=== PATIENT | male | born 2000 | race Caucasian/White ===

== ENCOUNTER 2025-02-08 10:47 | Emergency (ER) | payer OTHER, SELFPAY ==
--- NOTE | ~2025-02-08 | CT_ITS ---
EXAMINATION: CT abdomen pelvis w con DATE: 02/08/2025 12:05 INDICATION: Abdominal pain TECHNIQUE: Computed tomography (CT) of the abdomen and pelvis was performed with 100 mL Omnipaque-350 intravenous contrast. Automated exposure control and iterative reconstruction technique were employe d. The dose-length product was 199.40 mGy-cm. COMPARISON: None FINDINGS: Lung bases are clear. Heart size normal. No pericardial or pleural effusion. Subcentimeter low-attenu ation likely cyst or hemangioma at the anterior dome of the liver. Gallbladder, spleen, pancreas, hemal ateral adrenal glands and kidneys are normal. Bowels including the retrocecal appendix are normal. Th ere is diffuse wall thickening of the bladder but without surrounding inflammatory stranding. No free intraperitoneal gas or fluid. No pathologically enlarged abdominal or pelvic lymphadenopathy. Surgic al clips potentially for vasectomy along the bilateral spermatic cords. IMPRESSION: 1. Wall thickening of the bladder which could be due to partially decompressed state but which could also be seen with cystitis either acute or chronic although there is no surrounding inflammatory stra nding to suggest acute cystitis. Correlate with urinalysis. 2. No other acute intra-abdominal/pelvic process. Reviewed, dictated and finalized at location A. IMPRESSION: 1. Wall thickening of the bladder which could be due to partially decompressed state but which could also be seen with cystitis either acute or chronic althou gh there is no surrounding inflammatory stranding to suggest acute cystitis. Co rrelate with urinalysis. 2. No other acute intra-abdominal/pelvic process.
[2025-02-08 10:51] VITALS: BP 130/85; PULSE 80; RESP 16; TEMP 36.4; O2SAT 98
[2025-02-08 11:15] VITALS: BP 119/78; PULSE 71; RESP 16; O2SAT 99
[2025-02-08 11:18] LABS: Hematocrit 44.4 % (42.0-52.0); Hemoglobin 14.9 g/dL (14.0-18.0); Immature Granulocyte Percent A 0.4 % (0-0.5); Lymphocytes Absolute Auto 2.39 K/mm3 (0.9-3.2); Mean Corpuscular HGB Conc 33.6 g/dl (32-36); Mean Corpuscular Hemoglobin 28.7 pg (26-34); Mean Corpuscular Volume 85.5 fl (80-100); Nucleated Red Blood Cells Absolute Auto 0.000 K/mm3 (0.0-0.012); Nucleated Red Blood Cells Perc 0.0 % (0.0-0.2); Platelet Count Result 301 k/mm3 (150-375); Red Blood Count 5.19 M/mm3 (4.6-6.20); White Blood Count 8.5 K/mm3 (4.5-10.0)
[2025-02-08 11:27] LABS: Add Urine Microscopic? YES; Appearance Urine Clear (Clear); Glucose Urine UA Negative (Negative); Leukocyte Esterase Ur Negative LEU/UL (Negative); Need Manual Microscopic Reviewed; Nitrate Urine Negative (Negative); Non Pathogenic Casts 0-2; Specific Grav Ur 1.030 (1.001-1.035)
--- NOTE | 2025-02-08 11:33 | ED.ABDPAIN ---
HPI - Abdominal Pain General Chief Complaint: Abdominal Pain Stated Complaint: left sided abdominal pain for 8yrs Time Seen by Provider: 02/08/25 11:25 History of Present Illness HPI narrative: Pt presents with intermittent abdominal pain and rectal bleeding for 8 years. Pt says the pain is worse recently. Pt saw a PCP for first time recently and has GI follow up next month. Pt says he vomits blood sometimes but not recently. Related Data Allergies Allergy/AdvReac Type Severity Reaction Status Date / Time No Known Allergies Allergy Verified 02/08/25 10:54 Review of Systems Review of Systems: All systems reviewed & are unremarkable except as noted in HPI and below Exam Const: General: healthy appearing and no acute distress Nutritional Appearance: well nourished Orientation/consciousness: patient oriented x3 Limitations: no limitations Resp: Effort & Inspection: normal respiratory effort Auscultation: clear to auscultation bilaterally Cardio: Rate: regular rate Rhythm: regular rhythm GI: GI Palp: Yes Soft to palpation and Yes Tenderness to palpation present (GI) (across upper abdomen) Auscultation: normal bowel sounds Back/Spine/Pelvis: Back: no CVA tenderness Skin: General skin exam: normal color Rashes: no rashes Wounds: no wounds Neuro: General: patient oriented x3, moves all extremities, no meningeal signs and no focal motor deficits Cranial nerves: Yes Nystagmus not present Speech: normal speech Extrem: General: normal to inspection and no clubbing, cyanosis or edema Psych: Mental Status: mental status grossly normal Affect: normal affect Attitude: cooperative Course Vital Signs Vital signs: Vital Signs Temperature 97.6 F 02/08/25 10:51 Pulse Rate 80 02/08/25 10:51 Respiratory Rate 16 02/08/25 10:51 Blood Pressure 130/85 02/08/25 10:51 Pulse Oximetry 98 02/08/25 10:51 Temperature 97.6 F 02/08/25 10:51 Pulse Rate 71 02/08/25 11:15 Respiratory Rate 16 02/08/25 11:15 Blood Pressure 119/78 02/08/25 11:15 Pulse Oximetry 99 02/08/25 11:15 MDM - Abdominal Pain MDM Narrative Medical decision making narrative: Pt presents with intermittent abdominal pain for 8 yrs and intermittent rectal bleeding. Pt has GI follow up next month. Pt refused rectal. labs and ct ordered to rule out UC or Chrohn's or tumor. ct and labs unremarkable. Pt did not want IM of pain meds or bentyl. will send home on po bentyl with GI follow up as scheduled. Lab Data 02/08/25 11:03 02/08/25 11:03 Labs: Lab Results 02/08/25 Range/Units 11:03 WBC 8.5 (4.5-10.0) K/mm3 RBC 5.19 (4.6-6.20) M/mm3 Hgb 14.9 (14.0-18.0) g/dL Hct 44.4 (42.0-52.0) % MCV 85.5 (80-100) fl MCH 28.7 (26-34) pg MCHC 33.6 (32-36) g/dl RDW 13.2 (11.5-14.5) % Plt Count 301 (150-375) k/mm3 MPV 10.0 (7.4-10.4) fl Immature Gran % (Auto) 0.4 (0-0.5) % Neut % (Auto) 64.6 (45.5-73.1) % Lymph % (Auto) 28.1 (18.3-44.2) % [place] % (Auto) 6.2 (2.6-8.5) % Eos % (Auto) 0.2 (0-4.4) % Baso % (Auto) 0.5 (0.2-1.2) % Lymph # (Auto) 2.39 (0.9-3.2) K/mm3 [place] # (Auto) 0.5 (0.1-0.6) K/mm3 Eos # (Auto) 0.0 (0-0.3) K/mm3 Baso # (Auto) 0.0 (0.0-0.1) K/mm3 Abs Immat Gran (auto) 0.03 (0.00-0.031) K/mm3 Absolute Neuts (auto) 5.5 (1.3-6.7) K/mm3 Absolute Nucleated RBC 0.000 (0.0-0.012) K/mm3 Nucleated RBC % 0.0 (0.0-0.2) % Sodium 139 (137-145) mmol/L Potassium 3.8 (3.4-5.0) mmol/L Chloride 102 (98-107) mmol/L Carbon Dioxide 25 (22-30) mmol/L Anion Gap 12 (4-12) mmol/L BUN 11 (9-20) mg/dL Creatinine 0.77 (0.7-1.3) mg/dL Estim Creat Clear Calc 118 ml/min Estimated GFR > 60 (59 - ) Glucose 91 (65-110) mg/dL Calcium 9.9 (8.4-10.2) mg/dL Total Bilirubin 1.1 (0.2-1.3) mg/dL AST 26 (17-59) U/L ALT 19 (6-50) U/L Alkaline Phosphatase 47 (38-126) U/L Total Protein 8.5 H (6.3-8.2) g/dL Albumin 5.3 H (3.5-5.1) g/dL Lipase 62 (23-300) U/L Urine Color Dark yellow (Yellow) Urine Appearance Clear (Clear) Urine pH 5.5 (5.0-9.0) Ur Specific [place] 1.030 (1.001-1.035) Urine Protein Trace (Negative) mg/dL Urine Glucose (UA) Negative (Negative) mg/dL Urine Ketones 2+ H (Negative) mg/dL Ur Blood (Man) Negative (Negative) Urine Nitrate Negative (Negative) Urine Bilirubin Negative (Negative) Urine Urobilinogen 1.0 (<2.0) mg/dL Add Ur Microanalysis Reviewed Leukocyte Esterase Rfl Negative (Negative) KWABENA/UL Urine RBC 0-2 (0-2) /hpf Urine WBC 0-5 (0-3) /hpf Ur Squamous Epith Cells None seen (Few) /hpf Urine Bacteria None seen /hpf Urine Casts 0-2 Blood Type O Positive Antibody Screen Negative Imaging Data Radiologist's impression: ITS Impressions Abdomen/Pelvis CT 02/08/25 12:09 IMPRESSION: 1. Wall thickening of the bladder which could be due to partially decompressed state but which could also be seen with cystitis either acute or chronic although there is no surrounding inflammatory stranding to suggest acute cystitis. Correlate with urinalysis. 2. No other acute intra-abdominal/pelvic process. Discharge Plan Discharge Clinical Impression: Abdominal pain Patient Disposition: Home Condition: Stable Instructions: Antibiotic Form, Rectal Bleeding (ED), Abdominal Pain (ED) Patient Language: Sierra Leonean Prescriptions: New dicyclomine 20 mg tablet 20 mg PO QID PRN (Reason: abdominal pain) Qty: 20 0RF Follow-up/Referrals: Maryse,Misti Moreno MD [Primary Care Provider] -
--- OUTSIDE RECORDS SUMMARY | 2025-02-08 11:33 | XMS_ITS | Clinical Summary ---
Author Organization [facility] [employer] Address [address] [address] Care Team Providers Care Hardwood Floor Refinisher Name Role Phone Misti Serra MD Primary Care Provider [phone] Allergies No known active allergies Medications esomeprazole (NexIUM) 40 mg Capsule, Delayed Release(E.C.) Take 1 Capsule (40 mg) by mouth daily before breakfast. Take 15-30 min prior to first meal of the day. 30 Capsule 02/01/2025 Active Active Problems Problem Noted Date Diagnosed Date Weight loss, non-intentional 02/01/2025 Passage of bloody stools 02/01/2025 Hematemesis of unknown cause 02/01/2025 Generalized abdominal pain 02/01/2025 Financial difficulties 02/01/2025 Situational stress 02/01/2025 Resolved Problems Problem Noted Date Diagnosed Date Resolved Date GERD (gastroesophageal reflux disease) 02/01/2025 Encounters Date Type Department Care Team Description 02/03/2025 Results Follow-Up [facility] Element [facility] [address] [place] [address] Amelie Hinton, DAYANNA C-REACTIVE PROTEIN, SEDIMENTATION RATE, CBC WITH DIFFERENTIAL, COMPREHENSIVE METABOLIC PANEL 02/01/2025 10:00 AM CDT Office Visit [facility] Element [facility] [address] [place] [address] Amelie Hinton ANP Passage of bloody stools (Primary Dx); Hematemesis of unknown cause; Weight loss, non-intentional; Generalized abdominal pain; Financial difficulties; Situational stress; History of Helicobacter pylori infection - 201602/01/2025 External Device Data STL ABSTRACTION Provider, Abstract 12/15/2024 External Device Data ST[place] ABSTRACTION Provider, Abstract 11/18/2024 External Device Data STL ABSTRACTION Provider, Abstract from Last 3 Months Family History Medical History Relation Name Comments No Known Problems Brother 1 No Known Problems Brother 2 No Known Problems Brother 3 No Known Problems Brother 4 No Known Problems Brother 5 No Known Problems Daughter 1 No Known Problems Daughter 2 No Known Problems Daughter 3 No Known Problems Daughter 4 No Known Problems Father No Known Problems Maternal Grandfather Emphysema Maternal Grandmother No Known Problems Mother No Known Problems Paternal Grandfather No Known Problems Paternal Grandmother No Known Problems Sister 1 No Known Problems Sister 2 No Known Problems Sister 3 Diabetes Sister 4 Cleft Lip Son 1 Cleft Palate Son 1 No Known Problems Son 2 No Known Problems Son 3 Relation Name Status Comments Brother 1 Alive Brother 2 Alive Brother 3 Alive Brother 4 Alive Brother 5 Alive Daughter 1 Alive Daughter 2 Alive Daughter 3 Alive Daughter 4 Alive Father Alive Maternal Grandfather Maternal Grandmother Alive Mother Alive Paternal Grandfather Alive Paternal Grandmother Alive Sister 1 Alive Sister 2 Alive Sister 3 Alive Sister 4 Alive Son 1 Alive Son 2 Alive Son 3 Alive Social History Tobacco Use Types Packs/Day Years Used Date Smoking Tobacco: Former Cigarettes 0.5 5 2 - 2016 Smokeless Tobacco: Never Tobacco Cessation:Counseling Given: Not Answered Alcohol Use Standard Drinks/Week Comments Not Currently 0 (1 standard drink = 0.6 oz pur e alcohol) Sex and Gender Information Value Date Recorded Sex Assigned at Not on file 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 Gender Identity Not on file Sexual Orientation Not on file Last Filed Vital Signs Vital Sign Reading Time Taken Comments Blood Pressure 122/76 02/01/2025 9:56 AM CDT Pulse 68 02/01/2025 9:56 AM CDT Temperature 36.7 C (98.1 F) 02/01/2025 9:56 AM CDT Respiratory Rate 16 02/01/2025 9:56 AM CDT Oxygen Saturation 98% 02/01/2025 9:56 AM CDT Inhaled Oxygen Concentration - - Weight 63 kg (139 lb) 02/01/2025 9:56 AM CDT Height 170.2 cm (5' 7) 02/01/2025 9:56 AM CDT Body Mass Index 21.77 02/01/2025 9:56 AM CDT Plan of Treatment Upcoming Encounters Date Type Department Care Team (Late st Contact Info) Description 03/03/2025 10:00 AM CDT Office Visit [facility] at Work [employer] [place] [address] [place] [address] Amelie Hinton, ANP [address] [place] [address] Health Maintenance Due Date Last Done Comments HPV VACCINES (1 - Male 3-dose series) 2013 DTAP/TDAP/TD VACCINES (1 - Tdap) 2017 HEPATITIS B VACCINES (1 of 3 - 19+ 3-dose series) 05/31 INFLUENZA VACCINE (#1) 2025 Procedures Procedure Name Priority Date/Time Associated Diagnosis Comments COMPREHENSIVE METABOLIC PANEL Routine 02/01/2025 11:01 AM CDT Passage of bloody stools CBC WITH DIFFERENTIAL Routine 02/01/2025 11:01 AM CDT Passage of bloody stools SEDIMENTATION RATE Routine 02/01/2025 11 :01 AM CDT Passage of bloody stools C-REACTIVE PROTEIN Routine 02/01/2025 11 :01 AM CDT Passage of bloody stools from Last 3 Months Results * CBC WITH DIFFERENTIAL (02/01/2025 11:01 AM CDT) WBC 5.8 3.8 - 10.8 Thousand/u L [facility] RBC 4.77 4.20 - 5.80 Million/uL [facility] HEMOGLOBIN 14.1 13.2 - 17.1 g/dL [facility] HEMATOCRIT 43.9 38.5 - 50.0 % [facility] MCV 92.0 80.0 - 100.0 fL [facility] MCH 29.6 27.0 - 33.0 pg [facility] MCHC 32.1 32.0 - 36.0 g/dL [facility] Comment: For adults, a slight decrease in the calculated MCHC value (in the range of 30 to 32 g/dL) is most likely not clinically significant; however, it should be interpreted with caution in correlation with other red cell parameters and the patient's clinical condition. RDW 13.1 11.0 - 15.0 % [facility] PLATELETS 279 140 - 400 Thousand/u L [facility] MPV 10.9 7.5 - 12.5 fL [facility] NEUTROPHIL ABSOLUTE 3,567 1,500 - 7,800 cells/uL [facility] LYMPHOCYTE ABSOLUTE 1,775 850 - 3,900 cells/uL [facility] MONOCYTE ABSOLUTE 400 200 - 950 cells/uL [facility] EOSINOPHIL ABSOLUTE 17 15 - 500 cells/uL [facility] BASOPHILS ABSOLUTE 41 0 - 200 cells/uL [facility] NEUTROPHIL 61.5 % [facility] LYMPHOCYTES 30.6 % [facility] MONOCYTE 6.9 % [facility] EOSINOPHILS 0.3 % [facility] BASOPHILS 0.7 % [facility] Comment: Test Performed at: [place] [address] [address] [id number] [facility] Blood 02/01/2025 11:0 1 AM CDT 02/02/2025 4:06 AM CDT Amelie Hinton ANP HEMATOLOGY ORDERABLES Final Result [facility] [phone] [facility] [place] [address] [address] [phone] * SEDIMENTATION RATE (02/01/2025 11:01 AM CDT) ESR (SEDIMENTATION RATE) 2 < OR = 15 mm/h [facility] Comment: Test Performed at: [place] [address] [address] [phone] [facility] Blood 02/01/2025 11:0 1 AM CDT 02/02/2025 4:06 AM CDT Amelie Hinton ANP HEMATOLOGY ORDERABLES Final Result Performing Organization Address City/[facility]/ZIP Code Phone Number [facility] [phone] [place] [address] [place] [address] * C-REACTIVE PROTEIN (02/01/2025 11:01 AM CDT) CRP <5.0 <8.0 mg/L [facility] Comment: Test Performed at: [place] [address] [place] [address] [facility] Blood 02/01/2025 11:0 1 AM CDT 02/02/2025 4:06 AM CDT Amelie Hinton ANP CHEMISTRY ORDERABLES Final R esult Performing Organization Address [facility] Code Phone Number [facility] [phone] [place] [address] [place] [address] * (ABNORMAL) COMPREHENSIVE METABOLIC PANEL (02/01/2025 11:01 AM CDT) Pathologist [facility] GLUCOSE 93 65 - 99 mg/dL [facility]Piyush [facility] Comment: Fasting reference interval BUN 8 7 - 25 mg/dL [facility]opharmacopaeYuli Miranda CREATININE 0.77 0.60 - 1.24 mg/dL [facility]armac[facility]ae[facility]uli Miranda GFR 127 > OR = 60 mL/min/1. 73m2 OlistaPiyush Miranda BUN/CREAT RATIO SEE NOTE: 6 - 22 (calc) [facility] Comment: Not Reported: BUN and Creatinine are within reference range. SODIUM 140 135 - 146 mmol/L [facility] POTASSIUM 4.2 3.5 - 5.3 mmol/L [facility] CHLORIDE 104 98 - 110 mmol/L [facility] CO2 26 20 - 32 mmol/L [facility]ana sergei Miranda CALCIUM 10.1 8.6 - 10.3 mg/dL [facility] TOTAL PROTEIN 7.8 6.1 - 8.1 g/dL [facility] sergei Miranda ALBUMIN 5.4(H) 3.6 - 5.1 g/dL [facility] ChaitanyaS sergei Miranda GLOBULIN 2.4 1.9 - 3.7 g/dL (calc) [facility] ChaitanyaPiyush Miranda ALBUMIN/GLOBULIN RATIO 2.3 1.0 - 2.5 (calc) [facility] ChaitanyaPiyush Miranda BILIRUBIN TOTAL 0.8 0.2 - 1.2 mg/dL [facility] ALKALINE PHOSPHATASE 34(L) 36 - 130 U/L [facility] sergei Miranda AST 10 10 - 40 U/L [facility] sergei Miranda ALT 13 9 - 46 U/L [facility] sergei Miranda Comment: Test Performed at: [place] [address] [address] [id number] [facility] Blood 02/01/2025 11:0 1 AM CDT 02/02/2025 4:06 AM CDT us Amelie Hinton ANP CHEMISTRY ORDERABLES Final R esult [facility] [phone] [place] [address] [address] [phone] from Last 3 Months Insurance * Guarantor: [employer]) Account Type Relation to Patient Date of Phone Billing Address Corporate Employer ATTN: BETHANY CRUZ [address] [address] [facility] Care Teams Hardwood Floor Refinisher Relationship Specialty Start Date End Date Misti Serra MD [address] [place] [address] [address] [place] [address] PCP - General Internal Medicine 02/01/25
--- OUTSIDE RECORDS SUMMARY | 2025-02-08 11:33 | XMS_ITS | Encounter Summary ---
Author Organization [facility] Address [address] [place] [address] Care Team Providers Care Appointment Specialist Name Role Phone Misti Serra MD Primary Care Provider [phone] Encounter Details Date Type Department Care Team (Latest Contact Info) Description 02/03/2025 Results Follow-Up [facility] at Work [employer] [place] [address] [place] [address] Amelie Hinton, DAYANNA [address] [facility] [address] [place] [address] C-REACTIVE PROTEIN, SEDIMENTATION RATE, CBC WITH DIFFERENTIAL, COMPREHENSIVE METABOLIC PANEL Social History Tobacco Use Types Packs/Day Years Used Date Smoking Tobacco: Former Cigarettes 0.5 5 2 012 - 2017 Smokeless Tobacco: Never Alcohol Use Standard Drinks/Week Comments Not Currently 0 (1 standard drink = 0.6 oz pur e alcohol) Sex and Gender Information Value Date Recorded Sex Assigned at Not on file 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 Advise Will that his he is not anemic. Inflammation levels are normal, so there is no indication ofinfection to be causing symptoms. Continue to work to get more protein in diet. Peanut butter sandwich daily like we discussed. He should be contacted by GI for the testing discussed. Keep follow up appointment in Feb. documented in this encounter Plan of Treatment Upcoming Encounters Date Type Department Care Team (Late st Contact Info) Description 03/03/2025 10:00 AM CDT Office Visit [facility] at Work [employer] [place] [address] [facility] [place] [address] Amelie Hinton ANP [address] [place] [phone] documented as of this encounter Visit Diagnoses Not on filedocumented in this encounter Additional Health Concerns Assessment Noted Time PHQ-9 Depression Total Score: 1 02/02/20 11:00 AM CDT documented as of this encounter Care Teams Appointment Specialist Relationship Specialty Start Date End Date Misti Serra MD [address] [place] [address] PCP - General Internal Medicine 02/01/25 documented as of this encounter
[2025-02-08 11:41] LABS: Alanine Aminotransferase 19 U/L (6-50); Albumin Level 5.3 g/dL (3.5-5.1); Alkaline Phosphatase 47 U/L (38-126); Anion Gap 12 mmol/L (4-12); Aspartate Amino Transferase 26 U/L (17-59); Bilirubin,Total 1.1 mg/dL (0.2-1.3); Blood Urea Nitrogen 11 mg/dL (9-20); Calcium 9.9 mg/dL (8.4-10.2); Carbon Dioxide 25 mmol/L (22-30); Chloride 102 mmol/L (98-107); Estimated CRCL calculation 118 ml/min; Estimated Glomerular Filt Rate > 60; Glucose 91 mg/dL (65-110); Lipase 62 U/L (23-300); Potassium 3.8 mmol/L (3.4-5.0); Sodium 139 mmol/L (137-145); Total Protein 8.5 g/dL (6.3-8.2)
--- OUTSIDE RECORDS SUMMARY | 2025-02-08 12:21 | XMS_ITS | Encounter Summary ---
Author Organization [facility] Address [address] [place] [address] Care Team Providers Care Product Safety Tester Name Role Phone Misti Serra MD Primary Care Provider [phone] Encounter Details Date Type Department Care Team (Latest Contact Info) Description 02/03/2025 Results Follow-Up [facility] at Work [employer] [place] [address] [place] [address] Amelie Hinton, DAYANNA [address] 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 Gender Identity Not on file Sexual Orientation [...] Description 03/03/2025 10:00 AM CDT Office Visit [facility] at Work [employer] [place] [address] [place] [place] [address] [place]P [address] [address] [place] [address] documented as of this encounter Visit Diagnoses Not on filedocumented in this encounter Additional Health Concerns Assessment Noted Time PHQ-9 Depression Total Score: 1 02/02/20 11:00 AM CDT documented as of this encounter Care Teams Product Safety Tester Relationship Specialty Start Date End Date Misti Serra MD [address] [place] [address] PCP - General Internal Medicine 02/01/25 documented as of this encounter
--- OUTSIDE RECORDS SUMMARY | 2025-02-08 12:21 | XMS_ITS | Clinical Summary ---
Author Organization [facility] [employer] [place] Address [address] [address] Care Team Providers Care Vertical Contour Band Saw Operator Name Role Phone Misti Serra MD Primary Care Provider [phone] Allergies No known active allergies Medications esomeprazole [...] Department Care Team Description 02/03/2025 Results Follow-Up [facility] [employer] [facility] [address] [place] [address] Amelie Hinton, DAYANNA C-REACTIVE PROTEIN, SEDIMENTATION RATE, CBC WITH DIFFERENTIAL, COMPREHENSIVE METABOLIC PANEL 02/01/2025 10:00 AM CDT Office Visit [facility] [employer] 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 Gender Identity Not on file Sexual Orientation [...] Description 03/03/2025 10:00 AM CDT Office Visit [facility] at [facility] [employer] [place] [address] [place] [address] Amelie Hinton, ANP [address] [place] [address] Health Maintenance Due Date Last [...] Ruben HEMOGLOBIN 14.1 13.2 - 17.1 g/dL [facility] Ruben HEMATOCRIT 43.9 38.5 - [...] Diagnostics-S t Ruben Comment: Test Performed at: [email or web address] [address] [address] [id number] [employer] Blood 02/01/2025 11:0 1 AM CDT 02/02/2025 4:06 AM CDT Amelie Hinton ANP HEMATOLOGY ORDERABLES Final Result [facility] [phone] [facility] [place] [address] [address] [phone] * SEDIMENTATION RATE (02/01/2025 11:01 AM CDT) ESR (SEDIMENTATION RATE) 2 < OR = 15 mm/h [facility] [employer]-[facility] sergei Ruben Comment: Test Performed at: [email or web address] [address] [address] [address] [employer] Blood 02/01/2025 11:0 1 AM CDT 02/02/2025 4:06 AM CDT Amelie Hinton ANP HEMATOLOGY ORDERABLES Final Result Performing Organization Address City/[facility]/ZIP Code Phone Number [facility] [phone] [place] [address] [place] [address] * C-REACTIVE PROTEIN (02/01/2025 11:01 AM CDT) CRP <5.0 <8.0 mg/L [facility] MusicYuli Miranda Comment: Test Performed at: [place] [address] [place] [address] [employer] Blood 02/01/2025 11:0 1 AM CDT 02/02/2025 4:06 AM CDT Amelie Hinton ANP CHEMISTRY ORDERABLES Final R esult Performing Organization Address City/[facility] Code Phone Number [facility] [phone] [place] [address] [place] [address] * (ABNORMAL) COMPREHENSIVE METABOLIC PANEL (02/01/2025 11:01 AM CDT) Pathologist [facility] GLUCOSE 93 65 - 99 mg/dL [facility] [employer]Piyush Miranda Comment: Fasting reference interval BUN 8 7 - 25 mg/dL [facility] Miranda CREATININE 0.77 0.60 - 1.24 mg/dL [facility] Miranda GFR 127 > OR = 60 mL/min/1. 73m2 [facility] Miranda BUN/CREAT RATIO SEE NOTE: 6 - 22 (calc) [facility] [employer]-[facility] sergei Miranda Comment: Not Reported: BUN and Creatinine are within reference range. SODIUM 140 135 - 146 mmol/L [facility] [employer]Piyush Miranda POTASSIUM 4.2 3.5 - 5.3 mmol/L [facility] [employer] Miranda CHLORIDE 104 98 - 110 mmol/L [facility] Miranda CO2 26 20 - 32 mmol/L An [facility]uaryBreana sergei Miranda CALCIUM 10.1 8.6 - 10.3 mg/dL [facility] TOTAL PROTEIN 7.8 6.1 - 8.1 g/dL [facility] sergei Miranda ALBUMIN 5.4(H) 3.6 - 5.1 g/dL [facility] ChaitanyaS sergei Miranda GLOBULIN 2.4 1.9 - 3.7 g/dL (calc) [facility] ChaitanyaPiyush Miranda ALBUMIN/GLOBULIN RATIO 2.3 1.0 - 2.5 (calc) [facility] ChaitanyaPiyush Miranda BILIRUBIN TOTAL 0.8 0.2 - 1.2 mg/dL [facility] Miranda ALKALINE PHOSPHATASE 34(L) 36 - 130 U/L [facility] sergei Miranda AST 10 10 - 40 U/L [facility] sergei Miranda ALT 13 9 - 46 U/L [facility] sergei Miranda Comment: Test Performed at: [place] [address] [address] [id number] [employer] Blood 02/01/2025 11:0 1 AM CDT 02/02/2025 4:06 AM CDT us Amelie Hinton ANP CHEMISTRY ORDERABLES Final R esult [facility] [phone] [place] [address] [address] [phone] from Last 3 Months Insurance * Guarantor: [employer]) Account Type Relation to Patient Date of Phone Billing Address Corporate Employer ATTN: BETHANY CRUZ [address] [address] [facility] OPEN ACC[employer] Care Teams Vertical Contour Band Saw Operator Relationship Specialty Start Date End Date Misti Serra MD [address] [place] [address] [place] [address] PCP - General Internal Medicine 02/01/25
== END 2025-02-08 14:00 | disposition home or self-care (01) ==
PROVIDERS: Emergency Provider Emergency Medicine; PCP Internal Medicine
DX: R10.9 Unspecified abdominal pain (principal); K62.89 Other specified diseases of anus and rectum
CPT/HCPCS: 36415; 74177; 80053; 81001; 83690; 85025; 86850; 86900; 86901; 99284; Q9967

== ENCOUNTER 2025-03-22 00:34 | Day surgery (SDC) | payer OTHER, SELFPAY ==
[2025-03-07 13:08] VITALS: BMI 22.6
--- OUTSIDE RECORDS SUMMARY | 2025-03-22 00:37 | XMS_ITS ---
Author Organization Unknown ENCOUNTERS Encounter Performer Location Date Diagnosis Diagnosis Status Pre Admit [place] [id number] [place] [address] [id number] Emergency [facility] [address] [place] [address] [id number] HARMONY *Note: Encounters from your own facility or health system may be excluded. Allergies, Adverse Reactions, Alerts Allergen Type Severity Identification Date Medications Name Date Quantity Days Supplied GPI Number
--- OUTSIDE RECORDS SUMMARY | 2025-03-22 00:37 | XMS_ITS | Clinical Summary ---
Author Organization [facility] [employer] Address [address] [place] [address] Care Team Providers Care Blasting Helper Name Role Phone Misti Serra MD Primary Care Provider [phone] Allergies No known active allergies Medications dicyclomine (BENTYL) 20 mg tablet TAKE 1 TABLET BY MOUTH 4 TIMES DAILY NEEDED FOR ABDOMINAL PAIN 5 Active esomeprazole (NexIUM) 40 mg Capsule, Delayed Release(E.C.)In dications:Hemat emesis of unknown cause Take 1 Capsule (40 mg) by mouth daily before breakfast. Take 15-30 min prior to first meal of the day. 90 Capsule 5 Active esomeprazole (NexIUM) 40 mg Capsule, Delayed Release(E.C.) Take 1 Capsule (40 mg) by mouth daily before breakfast. Take 15-30 min prior to first meal of the day. 30 Capsule 5 03/03/20 25 Discontinu ed(Reorder ) Active Problems Problem Noted Date Diagnosed Date Weight loss, non-intentional 02/01/2025 Passage of bloody stools 02/01/2025 Overview (02/14/2025): CT scan abdomen/pelvis negative [facility] 01/2025. Hematemesis of unknown cause 02/01/2025 Generalized abdominal pain 02/01/2025 Financial difficulties 02/01/2025 Situational stress 02/01/2025 Resolved Problems Problem Noted Date Diagnosed Date Resolved Date GERD (gastroesophageal reflux disease) 02/01/2025 Encounters Date Type Department Care Team Description 03/03/2025 10:00 AM CDT Office Visit [facility] [place] [address] [place] [address] Amelie Hinton ANP Weight loss, non-intentional (Primary Dx); Passage of bloody stools; Hematemesis of unknown cause; Generalized abdominal pain 02/14/2025 Telephone [facility] [place] [address] [place] [address] Amelie Hinton, DAYANNA ED 02/03/2025 Results Follow-Up [address] [place] [address] Amelie Hinton, DAYANNA C-REACTIVE PROTEIN, SEDIMENTATION RATE, CBC WITH DIFFERENTIAL, COMPREHENSIVE METABOLIC PANEL 02/01/2025 10:00 AM CDT Office Visit [place] [address] [place] [address] Amelie Hinton ANP Passage of bloody stools [...] 2 012 - 2017 Smokeless Tobacco: Never Tobacco Cessation:Counseling Given: Not Answered Alcohol Use Standard Drinks/Week Comments Not Currently 0 (1 standard drink = 0.6 oz pur e alcohol) Sex and Gender Information Value Date Recorded Sex Assigned at Not on file 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 Gender Identity Not on file Sexual Orientation Not on file Last Filed Vital Signs Vital Sign Reading Time Taken Comments Blood Pressure 122/74 03/03/2025 9:51 AM CDT Pulse 71 03/03/2025 9:51 AM CDT Temperature 36.2 C (97.1 F) 03/03/2025 9:51 AM CDT Respiratory Rate 16 03/03/2025 9:51 AM CDT Oxygen Saturation 99% 03/03/2025 9:51 AM CDT Inhaled Oxygen Concentration - - Weight 65.8 kg (145 lb) 03/03/2025 9:51 AM CDT Height 170.2 cm (5' 7) 03/03/2025 9:51 AM CDT Body Mass Index 22.71 03/03/2025 9:51 AM CDT Plan of Treatment Upcoming Encounters Date Type Department Care Team (Late st Contact Info) Description 05/02/2025 9:00 AM SITE MANAGER Office Visit [facility] at Work [employer] [address] [place] [address] Amelie Hinton, ANP [address] [facility] [address] [facility] [address] [place] [address] Health Maintenance Due Date Last [...] Ruben HEMOGLOBIN 14.1 13.2 - 17.1 g/dL [facility] Ruben HEMATOCRIT 43.9 38.5 - [...] t Ruben LYMPHOCYTES 30.6 % [facility] sergei Ruben MONOCYTE 6.9 % [facility] Rub[facility] EOSINOPHILS 0.3 % [facility] Ruben BASOPHILS 0.7 % [facility] Ruben Comment: Test Performed at: [place] [address] [address] [id number] [facility] Blood 02/01/2025 11:0 1 AM CDT 02/02/2025 4:06 AM CDT Amelie Hinton ANP HEMATOLOGY ORDERABLES Final Result Performing Organization Address City/[facility] Phone Number [facility] [phone] [place] [address] [address] [phone] * SEDIMENTATION RATE (02/01/2025 11:01 AM CDT) ESR (SEDIMENTATION RATE) 2 < OR = 15 mm/h [facility] ZolloPiyush Miranda Comment: Test Performed at: [place] [address] [address] [phone] [facility] Blood 02/01/2025 11:0 1 AM CDT 02/02/2025 4:06 AM CDT Result [facility] us Amelie Hinton ANP HEMATOLOGY ORDERABLES Final Result Performing Organization Address [facility] Phone Number [facility] [phone] [place] [address] [address] [phone] * C-REACTIVE PROTEIN (02/01/2025 11:01 AM CDT) CRP <5.0 <8.0 mg/L [facility] ZolloS sergei Mrianda Comment: Test Performed at: [facility] [place] [address] [address] [address] [facility] Blood 02/01/2025 11:0 1 AM CDT 02/02/2025 4:06 AM CDT us Amelie Hinton ANP CHEMISTRY ORDERABLES Final R esult Performing Organization Address City/[facility] Code Phone Number [facility] [phone] [facility] [place] [address] [address] [phone] * (ABNORMAL) COMPREHENSIVE METABOLIC PANEL (02/01/2025 11:01 AM CDT) GLUCOSE 93 65 - 99 mg/dL [facility] AdvestigoPiyush Miranda Comment: Fasting reference interval BUN 8 7 - 25 mg/dL [facility] ZolloPiyush mai Ruben CREATININE 0.77 0.60 - 1.24 mg/dL [facility] ZolloPiyush Miranda GFR 127 > OR = 60 mL/min/1. 73m2 [employer]yush Miranda BUN/CREAT RATIO SEE NOTE: 6 - 22 (calc) [facility]ollo-Piyush Miranda Comment: Not Reported: BUN and Creatinine are within reference range. SODIUM 140 135 - 146 mmol/L [facility] ZolloPiyush Miranda POTASSIUM 4.2 3.5 - 5.3 mmol/L [employer] sergei Miranda CHLORIDE 104 98 - 110 mmol/L [employer] sergei Miranda CO2 26 20 - 32 mmol/L [employer]S sergei Miranda CALCIUM 10.1 8.6 - 10.3 mg/dL [employer]-Piyush Miranda TOTAL PROTEIN 7.8 6.1 - 8.1 g/dL [employer] sergei Miranda ALBUMIN 5.4(H) 3.6 - 5.1 g/dL [employer] sergei Miranda GLOBULIN 2.4 1.9 - 3.7 g/dL (calc) [employer]-Piyush Miranda ALBUMIN/GLOBULIN RATIO 2.3 1.0 - 2.5 (calc) [employer]-Piyush Miranda BILIRUBIN TOTAL 0.8 0.2 - 1.2 mg/dL [employer] IndustriesPiyush Miranda ALKALINE PHOSPHATASE 34(L) 36 - 130 U/L [employer] sergei Ruben AST 10 10 - 40 U/L [employer]-Piyush mai Ruben ALT 13 9 - 46 U/L [employer]-Piyush mai Ruben Comment: Test Performed at: [place] [address] [address] [phone] [facility] Blood 02/01/2025 11:0 1 AM CDT 02/02/2025 4:06 AM CDT Amelie Hinton ANP CHEMISTRY ORDERABLES Final R esult [facility] [phone] [facility] [address] [place] [address] from Last 3 Months Insurance [employer] Care Teams Blasting Helper Relationship Specialty Start Date End Date Misti Serra MD [address] [place] [address] [employer] [place] [address] PCP - General Internal Medicine 02/01/25
--- OUTSIDE RECORDS SUMMARY | 2025-03-22 00:37 | XMS_ITS | Encounter Summary ---
Author Organization [facility] Address 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 Gender Identity Not on file Sexual Orientation [...] st Contact Info) Description 05/02/2025 9:00 AM TECHNICAL PROPOSAL WRITER Office Visit [facility] [employer] [place] [address] [place] [address] Amelie Hinton ANP [address] [facility] [address] [place] [address] documented as of this encounter Visit Diagnoses Not on filedocumented in this encounter Additional Health Concerns Assessment Noted Time PHQ-9 Depression Total Score: 1 02/02/20 11:00 AM CDT documented as of this encounter Care Teams Employment Representative Relationship Specialty Start Date End Date Misti Serra MD [address] [place] [address] PCP - General Internal Medicine 02/01/25 documented as of this encounter
[2025-03-22 11:19] VITALS: BP 110/69; PULSE 57; RESP 18; TEMP 36.8; O2SAT 100
[2025-03-22] MEDS: LACTATED RINGERS 1,000 ML 150 ML IV CONT (11:34)
[2025-03-22] MEDS: SIMETHICONE ORAL SUSPENSION 20 MG/0.3 ML 30 ML BOTTLE 1.8 ML PO (11:35)
--- NOTE | 2025-03-22 11:54 | P.PNAN_ITS ---
Anes - Initial Pre Proc Eval Procedure: Operation Date: 03/22/25 12:30 Proposed Procedures p EGD & Diagnostic Colonoscopy - Barrett Pride MD Date/Time: 03/22/25 11:54 Surgeon: Barrett Pride MD Pre Op Diagnosis: Melena Patient Data Age: 24 Gender: M Height: 1.7 m Weight: 63.5 kg Last Vital Signs Temp 98.3 F 03/22/25 11:19 Pulse 57 L 03/22/25 11:19 Resp 18 03/22/25 11:19 BP 110/69 03/22/25 11:19 Pulse Ox 100 03/22/25 11:19 O2 Del Method Room Air 03/22/25 11:19 Allergies Allergy/AdvReac Type Severity Reaction Status Date / Time No Known Allergies Allergy Verified 03/22/25 11:18 Home Medications ?Medication ?Instructions ?Recorded ?Confirmed ?Type dicyclomine 20 mg tablet 20 mg PO QID PRN abdominal p ain 02/08/25 03/07/25 Rx #20 tabs esomeprazole magnesium 40 mg 40 mg PO DAILY 03/07/25 0 03/22/25 History capsule,delayed release (Nexium) Patient hx anesthesia problems: none Family hx anesthesia problems: none Results Review: All pre-operative results and documents have been reviewed as part of the pre- operative evaluation. [facility] Social History Social History Smoking status: Current every day smoker Tobacco type: e-cigarettes/vaping Alcohol intake: never Substance use: current Substance use type: marijuana Other substance usage details: daily Living arrangements: with family Spiritual care concerns: No Anes - Eval Final PreProcedure Day of Procedure 03/22/25 11:54 Patient weight: normal Lungs: normal air movement Airway: Mallampati scale class II Neurological: alert and oriented Last oral intake: >/= 8 hours ASA classification: II Emergent: no Anesthetic plan: proceed Anesthesia type and monitoring: general GIVS and standard monitoring Results Review: All pre-operative results and documents have been reviewed as part of the pre- operative evaluation. Pt smokes/vapes all day, and marijuana every day. Informed Consent: The patient's anesthetic plan and its attendant risks and benefits were discussed with the patient/family/POA. Questions were solicited and answers provided to the satisfaction of the patient/family/POA.
--- NOTE | 2025-03-22 12:36 | P.HP_ITS ---
H&P: HPI History of Present Illness Date/Time: 03/22/25 12:36 Chief Complaint: Abdominal pain -rectal bleeding Narrative: the patient has been complaining of longstanding intermittent epigastric pain, partially relieved by Omeprazole. This is associated with occasional heartburn. In addition the patient has been having episodes of rectal bleeding. He is referred for EGD and colonoscopy. Review of Systems Review of Systems: All systems reviewed & are unremarkable except as noted in HPI and below PMFSH Social History Social History Smoking status: Current every day smoker Tobacco type: e-cigarettes/vaping Alcohol intake: never Substance use: current Substance use type: marijuana Other substance usage details: daily Living arrangements: with family Spiritual care concerns: No Meds Home Medications and Allergies Home Medications ?Medication ?Instructions ?Recorded ?Confirmed ?Type dicyclomine 20 mg tablet 20 mg PO QID PRN abdominal p ain 02/08/25 03/07/25 Rx #20 tabs esomeprazole magnesium 40 mg 40 mg PO DAILY 03/07/25 0 03/22/25 History capsule,delayed release (Nexium) Allergies Allergy/AdvReac Type Severity Reaction Status Date / Time No Known Allergies Allergy Verified 03/22/25 11:18 Vital Signs Vital Signs - 24 hr 03/22/25 11:19 Temperature 98.3 F Pulse Rate 57 L Respiratory Rate 18 Blood Pressure 110/69 Pulse Oximetry 100 Oxygen Delivery Room Air Exam Const: General: cooperative and healthy appearing Resp: Effort & Inspection: normal respiratory effort and able to speak in complete sentences Auscultation: clear to auscultation bilaterally Cardio: Rate: regular rate Rhythm: regular rhythm GI: Inspection: normal to inspection GI Palp: No No hepatosplenomegaly present Auscultation: normal bowel sounds Rectal Exam: deferred Skin: General skin exam: normal color Psych: Appearance: grossly normal Mental Status: mental status grossly normal Assessment and Plan Assessment and plan (1) Epigastric pain: Code(s): R10.13 - Epigastric pain Status: Acute Assessment and Plan: The patient is deemed a good candidate for the procedure. Consent signed. Will proceed. (2) Bright red rectal bleeding: Code(s): K62.5 - Hemorrhage of anus and rectum Status: Acute
--- NOTE | 2025-03-22 12:47 | S_PTH ---
PATIENT: Alfredo Prater Jr. LOC: [facility] U#:[id number] AGE/SX: 24/M ROOM: RE03/22/[address]: Barrett Pride MD : 2000 BED: DIS: 03/22/2025 SPEC #: [id number] RECD: 03/22/25 13:27 STATUS: JONES REJennifer #: [id number] ADEBAYO: 03/22/25 12:[address]: Barrett Pride DEPT: [facility] Surgical RECD BY: Toño Jacobsen ENTERED: 03/22/25 13:27 SP TYPE: Surgical OTHR DR: Misti SerraMD Tissues: A - Gastric Biopsy B - Gastric Biopsy Procedures: Hematoxylin and Eosin Stain Gross and Microscopic Level 4
--- NOTE | 2025-03-22 12:51 | SUR.OPER ---
egd ended at 1251 and colonoscopy begun at 1251,
[2025-03-22 13:05] VITALS: BP 104/60; PULSE 67; RESP 20; O2SAT 100
[2025-03-22 13:15] VITALS: BP 108/59; PULSE 60; RESP 18; O2SAT 100
[2025-03-22 13:25] VITALS: BP 116/72; PULSE 66; RESP 19; O2SAT 100
== END 2025-03-22 13:40 | disposition home or self-care (01) ==
PROVIDERS: PCP Internal Medicine; Referring Provider Internal Medicine; Visit Provider Internal Medicine Gastroenterology
PROC: 0DJ08ZZ Inspection of Upper Intestinal Tract, Via Natural or Artificial Opening Endoscopic (ICD-10-PCS; CPT 45378; principal; 2025-03-22 12:30)
DX: K64.8 Other hemorrhoids (principal); K21.9 Gastro-esophageal reflux disease without esophagitis; F17.290 Nicotine dependence, other tobacco product, uncomplicated; F12.90 Cannabis use, unspecified, uncomplicated
CPT/HCPCS: 43239; 45378; 88305; J2003; J2704; J7120

== ENCOUNTER 2025-04-25 08:00 | Outpatient (CLI) | payer OTHER, SELFPAY ==
--- NOTE | ~2025-04-25 | NM_ITS ---
EXAMINATION: NM_HEPATWP_NM DATE: 04/25/2025 10:56 INDICATION: Right upper quadrant abdominal pain. COMPARISON: CT 02/08/2025 TECHNIQUE: 4.5 mCi Tc-99m mebrofenin (Choletec) was administered intravenously. Scintigraphic images of the abdomen were obtained for one hour. Then, 1.5 mcg sincalide (Kinevac) IV was administered, and imaging was continued for 30 minutes. FINDINGS: There is normal clearance of radiotracer from the blood pool. There is homogeneous tracer uptake by the liver. Activity progresses to the bowel and gallbladder. Gallbladder ejection fraction (GBEF) was 71%. Note that most patients with gallbladder dysfunction have GBEF < 35%, which overlaps with the broad normal range of 10-90%. IMPRESSION: 1. Normal hepatobiliary scintigraphy. Reviewed, dictated and finalized at location E.
--- OUTSIDE RECORDS SUMMARY | 2025-04-25 08:06 | XMS_ITS | Clinical Summary ---
Author Organization [facility] [employer] [place] Address [address] [address] Care Team Providers Care Mule Rider Name Role Phone Misti Serra MD Primary Care Provider [phone] Allergies No known active allergies Medications dicyclomine (BENTYL) 20 mg tablet TAKE 1 TABLET BY MOUTH 4 TIMES DAILY NEEDED FOR ABDOMINAL PAIN Active esomeprazole (NexIUM) 40 mg Capsule, Delayed Release(E.C.)In dications:Hemat emesis of unknown cause Take 1 Capsule (40 mg) by mouth daily before breakfast. Take 15-30 min prior to first meal of the day. 90 Capsule Active Active Problems Problem Noted Date Diagnosed Date Internal hemorrhoids 03/28/2025 Overview (03/28/2025): On colonscopy 03/22/2025 Weight loss, non-intentional 02/01/2025 Overview (03/28/2025): Negative EGD and colonscopy 02/2025 Hematemesis of unknown cause 02/01/2025 Generalized abdominal pain 02/01/2025 Financial difficulties 02/01/2025 Situational stress 02/01/2025 Resolved Problems Problem Noted Date Diagnosed Date Resolved Date Passage of bloody stools 02/01/2025 Overview (02/14/2025): CT scan abdomen/pelvis negative [facility] 01/2025. GERD (gastroesophageal reflux disease) 02/01/2025 Encounters Date Type Department Care Team Description 03/28/2025 Telephone [facility] [place] [address] [place] [address] Amelie Hinton ANP Follow Up 03/03/2025 10:00 AM CDT Office Visit [place] [address] [place] [address] Amelie Hinton, DAYANNA Weight loss, non-intentional (Primary Dx); Passage of bloody stools; Hematemesis of unknown cause; Generalized abdominal pain 02/14/2025 Telephone [facility] [place] [address] [place] [address] Amelie Hinton, DAYANNA ED 02/03/2025 Results Follow-Up [facility] [place] [address] [facility] [place] [address] Amelie Hinton ANP C-REACTIVE PROTEIN, SEDIMENTATION RATE, CBC WITH DIFFERENTIAL, COMPREHENSIVE METABOLIC PANEL 02/01/2025 10:00 AM CDT Office Visit [place] [address] [address] [facility] [place] [address] Amelie Hinton, DAYANNA Passage of bloody stools (Primary Dx); Hematemesis [...] on file 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 Gender Identity Not on file Sexual Orientation [...] st Contact Info) Description 05/02/2025 9:00 AM MOULDER OPERATOR Office Visit [facility] [place] [address] [place] [address] Amelie Hinton, ANP [address] [facility] Shashank Almanza [facility] [address] [place] [address] Health Maintenance Due Date Last [...] 400 200 - 950 cells/uL [facility] sergei Miranda EOSINOPHIL ABSOLUTE 17 15 - 500 cells/uL [facility] BASOPHILS ABSOLUTE 41 0 - 200 cells/uL [facility] Miranda NEUTROPHIL 61.5 % [facility] LYMPHOCYTES 30.6 % [facility] Miranda MONOCYTE 6.9 % [facility] Miranda EOSINOPHILS 0.3 % [facility] Miranda BASOPHILS 0.7 % [facility] Miranda Comment: Test Performed at: [place] [address] [address] [phone] [facility] Blood 02/01/2025 11:0 1 AM CDT 02/02/2025 4:06 AM CDT Amelie Hinton ANP HEMATOLOGY ORDERABLES Final Result Performing Organization Address City/[facility]/ZIP Code Phone Number [facility] [phone] [place] [address] [address] [id number] * SEDIMENTATION RATE (02/01/2025 11:01 AM CDT) ESR (SEDIMENTATION RATE) 2 < OR = 15 mm/h [facility] sergei Miranda Comment: Test Performed at: [place] [address] [address] [phone] [facility] Blood 02/01/2025 11:0 1 AM CDT 02/02/2025 4:06 AM CDT us Amelie Hinton ANP HEMATOLOGY ORDERABLES Final Result [facility] [phone] [place] [address] [address] [id number] * C-REACTIVE PROTEIN (02/01/2025 11:01 AM CDT) CRP <5.0 <8.0 mg/L [facility] Comment: Test Performed at: [place] [address] [address] [address] [facility] Blood 02/01/2025 11:0 1 AM CDT 02/02/2025 4:06 AM CDT us Amelie Hinton ANP CHEMISTRY ORDERABLES Final R esult [facility] [phone] [place] [address] [address] [id number] * (ABNORMAL) COMPREHENSIVE METABOLIC PANEL (02/01/2025 11:01 AM CDT) GLUCOSE 93 65 - 99 mg/dL [facility] Comment: Fasting reference interval BUN 8 7 - 25 mg/dL [facility] [facility] CREATININE 0.77 0.60 - 1.24 mg/dL [facility] sergei Miranda GFR 127 > OR = 60 mL/min/1. 73m2 [facility] BUN/CREAT RATIO SEE NOTE: 6 - 22 (calc) [facility]i Miranda Comment: Not Reported: BUN and Creatinine are within reference range. SODIUM 140 135 - 146 mmol/L [facility] Miranda POTASSIUM 4.2 3.5 - 5.3 mmol/L [facility] Miranda CHLORIDE 104 98 - 110 mmol/L [facility] [employer] CO2 26 20 - 32 mmol/L [facility] [employer] CALCIUM 10.1 8.6 - 10.3 mg/dL [facility] [employer] TOTAL PROTEIN 7.8 6.1 - 8.1 g/dL [facility] [employer] ALBUMIN 5.4(H) 3.6 - 5.1 g/dL [facility] [employer] GLOBULIN 2.4 1.9 - 3.7 g/dL (calc) [facility] [employer] ALBUMIN/GLOBULIN RATIO 2.3 1.0 - 2.5 (calc) [facility] BILIRUBIN TOTAL 0.8 0.2 - 1.2 mg/dL [facility] Miranda ALKALINE PHOSPHATASE 34(L) 36 - 130 U/L [facility] ser[facility]i Miranda AST 10 10 - 40 U/L [facility] Miranda ALT 13 9 - 46 U/L [facility] sergei Miranda Comment: Test Performed at: [place] [address] [address] [phone] [facility] Blood 02/01/2025 11:0 1 AM CDT 02/02/2025 4:06 AM CDT Amelie Hinton ANP CHEMISTRY ORDERABLES Final R esult [facility] [phone] [facility] [address] [place] [phone] from Last 3 Months Insurance [employer] OPEN ACCESS Care Teams Mule Rider Relationship Specialty Start Date End Date Misti Serra MD [address] [place] [address] [place] [address] PCP - General Internal Medicine 02/01/25
== END 2025-04-25 08:01 | disposition home or self-care (01) ==
PROVIDERS: PCP Internal Medicine; Visit Provider Nurse Practitioner Family
DX: R11.0 Nausea (principal); R10.11 Right upper quadrant pain
CPT/HCPCS: 78227; A9537; J2805